=== PATIENT | male | born 1965 | race Hispanic/Latino ===

== ENCOUNTER 2016-07-07 11:05 | Emergency (ER) | payer MEDICARE ==
[2016-07-07 11:05] VITALS: BMI 45.0
[2016-07-07 11:19] VITALS: RESP 16; TEMP 98.5
--- NOTE | 2016-07-07 11:25 | ED PDOC ---
Arrival/HPI - General Chief Complaint: Upper Extremity Problem/Injury Time Seen by Provider: 07/07/16 11:21 Historian: Patient - History of Present Illness Narrative History of Present Illness (Text): 07/07/16 11:23 51 y/o male, pmh including htn/gout, nkda, c/o lt. shoulder pain on and off x 2 weeks with no fall or trauma. Aching pain, aggravated by movement, non- radiating, no chest pain or shortness of breath, no numbness or tingling, no palpitation, no dizziness, no pain medication taken at home, didn't have the chance to see his own pmd and here at the ER for evaluation. Past Medical History - Provider Review Nursing Documentation Reviewed: Yes - Past History Past History: Non-Contributing - Infectious Disease Hx of Infectious Diseases: None - Tetanus Immunization Tetanus Immunization: Unknown - Past Medical History Past Medical History: Non-Contributing - Cardiac Hx Cardiac Disorders: Yes Hx Hypertension: Yes - Neurological Hx Paralysis: No - HEENT Hx HEENT Disorder: Yes (L LAZY EYE) - Renal Hx Renal Disorder: Yes (NEPHROLITHIASIS-1.4 CM L POLE OF KIDNEY) Hx Kidney Stones: Yes Other/Comment: corbin kid stents presently as per pt - Endocrine/Metabolic Hx Diabetes Mellitus Type 2: Yes - Hematological/Oncological Hx Blood Transfusion Reaction: No - Integumentary Hx Dermatological Disorder: Yes - Musculoskeletal/Rheumatological Hx Musculoskeletal Disorders: Yes (RIGHT KNEE ARTHROCENTESIS) Hx Falls: Yes Hx Unsteady Gait: Yes (CANE) - Gastrointestinal Hx Gall Bladder Disease: Yes (gb removal) - Psychiatric Hx Emotional Abuse: No Hx Physical Abuse: No Hx Substance Use: No - Past Surgical History Past Surgical History: Non-Contributing - Surgical History Hx Cholecystectomy: Yes Other/Comment: kidney stone - Anesthesia Hx Anesthesia Reactions: No Hx Malignant Hyperthermia: No - Suicidal Assessment Feels Threatened In Home Enviroment: No Family/Social History - Physician Review Nursing Documentation Reviewed: Yes Family/Social History: Unknown Family HX Smoking Status: Never Smoked Hx Alcohol Use: No Hx Substance Use: No Hx Substance Use Treatment: No Allergies/Home Meds Allergies/Adverse Reactions: Allergies No Known Allergies Allergy (Verified 07/07/16 11:19) Home Medications: Home Meds Medication Instructions Recorded Confirmed Nebivolol [Bystolic] 10 mg PO QAM 08/20/15 07/07/16 amLODIPine [Norvasc] 10 mg PO QPM 08/20/15 07/07/16 Review of Systems - Review of Systems Constitutional: absent: Fatigue, Fevers Eyes: absent: Vision Changes ENT: absent: Hearing Changes Respiratory: absent: Cough, Sputum Cardiovascular: absent: Chest Pain, Palpitations Gastrointestinal: absent: Abdominal Pain Musculoskeletal: Arthralgias. absent: Back Pain, Neck Pain, Joint Swelling, Myalgias Skin: absent: Rash, Pruritis, Skin Lesions, Laceration, Abscess, Ulcer Neurological: absent: Headache, Dizziness, Focal Weakness, Gait Changes, Speech Changes, Facial Droop, Disequilibrium Physical Exam Vital Signs Reviewed: Yes Vital Signs Temp Pulse Resp BP Pulse Ox 07/07/16 12:01 63 16 137/85 99 07/07/16 11:16 98.5 F 68 16 138/87 96 Temperature: Afebrile Blood Pressure: Normal Pulse: Regular Respiratory Rate: Normal Appearance: Positive for: Well-Appearing, Non-Toxic, Comfortable Pain Distress: Mild Mental Status: Positive for: Alert and Oriented X 3 - Systems Exam Head: Present: Atraumatic, Normocephalic Pupils: Present: PERRL Extroacular Muscles: Present: EOMI Conjunctiva: Present: Normal Mouth: Present: Moist Mucous Membranes Neck: Present: Normal Range of Motion Respiratory/Chest: Present: Clear to Auscultation, Good Air Exchange. No: Respiratory Distress, Accessory Muscle Use Cardiovascular: Present: Regular Rate and Rhythm, Normal S1, S2. No: Murmurs Abdomen: Present: Normal Bowel Sounds. No: Tenderness, Distention, Peritoneal Signs Back: Present: Normal Inspection Upper Extremity: Present: Normal Inspection, Normal ROM, NORMAL PULSES, Neurovascularly Intact, Capillary Refill < 2s, Other (Lt. shoulder: +ttp on the anterior shoulder joint line with pain 100% reproducible, FROM without limitation, sensation intact, motor 5/5, +radial pulse, capillary refill< 2 seconds, neurovascular intact. ). No: Cyanosis, Edema, Deformity Lower Extremity: Present: Normal Inspection. No: Edema Neurological: Present: GCS=15, CN II-XII Intact, Speech Normal Skin: Present: Warm, Dry, Normal Color. No: Rashes Psychiatric: Present: Alert, Oriented x 3, Normal Insight, Normal Concentration Medical Decision Making ED Course and Treatment: 07/07/16 11:25 -lt. shoulder xray -indomethacin -observe and reassess 07/07/16 11:52 -Pt. stated that he feels better, discussed about the xray show no fracture or dislocation but there is mild degenerative changes, sling given, advised outpatient orthopedic follow up. -Discharge home with sling, indomethacin, avoid strenuous exercise or activity, follow up with your own pmd and orthopedic within 2 days, return to the ER for any new or worsening signs or symptoms. - RAD Interpretation Radiology Orders: 07/07/16 11:21 SHOULDER LEFT [RAD] Stat HISTORY: lt. shoulder pain x 2 weeks, non-radiating COMPARISON: No prior. FINDINGS: BONES: Normal. No fracture. JOINTS: Degenerative changes are seen in the acromioclavicular joint. SOFT TISSUES: Normal. OTHER FINDINGS: None. IMPRESSION: No acute findings Employee Benefits Manager: Radiologist - Medication Orders Current Medication Orders: Discontinued Medications Indomethacin (Indocin) 50 mg PO STAT STA Stop: 07/07/16 11:22 Last Admin: 07/07/16 11:35 Dose: 50 mg - PA / FARM EQUIPMENT MECHANIC APPRENTICE / Resident Statement / has reviewed & agrees with the documentation as recorded. Disposition/Present on Arrival - Present on Arrival Any Indicators Present on Arrival: No History of DVT/PE: No History of Uncontrolled Diabetes: No Urinary Catheter: No History of Decub. Ulcer: No History Surgical Site Infection Following: None - Disposition Have Diagnosis and Disposition been Completed?: Yes Diagnosis: Tendinitis, Degenerative joint disease Disposition: HOME/ ROUTINE Disposition Time: 11:54 Patient Plan: Discharge Patient Problems: Current Active Problems Problem Status Onset Tendinitis Acute Degenerative joint disease Acute Condition: IMPROVED Additional Instructions: Discharge home with sling, indomethacin, avoid strenuous exercise or activity, follow up with your own pmd and orthopedic within 2 days, return to the ER for any new or worsening signs or symptoms. Prescriptions: Indomethacin [Indocin] 50 mg PO TID PRN #21 cap PRN Reason: Other Referrals: Christine Busby MD [Primary Care Provider] - Follow up with primary Ismael Rebolledo DO [Staff Provider] - Follow up with primary Forms: WORK NOTE
[2016-07-07 12:02] VITALS: BP 137/85; PULSE 63; O2SAT 99
--- NOTE | 2016-07-07 12:03 | RAD ---
PROCEDURE: Radiographs of the Left Shoulder HISTORY: lt. shoulder pain x 2 weeks, non-radiating COMPARISON: No prior. FINDINGS: BONES: Normal. No fracture. JOINTS: Degenerative changes are seen in the acromioclavicular joint. SOFT TISSUES: Normal. OTHER FINDINGS: None. IMPRESSION: No acute findings
== END 2016-07-07 12:03 | disposition home or self-care (01) ==
LOC: ED 11:05
DX: M19.012 Primary osteoarthritis, left shoulder (principal); M77.8 Other enthesopathies, not elsewhere classified

== ENCOUNTER 2016-11-20 01:39 | Emergency (ER) | payer MEDICARE ==
[2016-11-20 01:39] VITALS: BMI 45.0
[2016-11-20 01:59] VITALS: BP 160/99; PULSE 82; RESP 18; TEMP 97.8; O2SAT 97
--- NOTE | 2016-11-20 02:22 | ED PDOC ---
Arrival/HPI - History of Present Illness Time/Duration: 4-6 hours Symptom Onset: Gradual Symptom Course: Intermittent Quality: Pressure Severity Level: 5 - General Chief Complaint: Back Pain Time Seen by Provider: 11/20/16 01:41 - History of Present Illness Narrative History of Present Illness (Text): 11/20/16 02:20 This is a 51 year old male with PMHx HTN, CKD, nephrolithiasis s/p stent placement who presents for back pain. Patient states it started earlier this evening around 10 PM and has been intermittent. Patient took a shower and after the shower, he experienced worsening pain, prompting him to come to the ER. Patient denies trauma but states that he was doing housework earlier. Patient states that the pain is described as a 5/10 pressure sensation without radiation. Patient states that he has not taken anything for pain. Patient has a history of nephrolithiasis but states that this episode of pain does not feel the same as previous episodes of kidney stones. Patient denies hematuria, dysuria, urinary frequency. PMHx: HTN, CKD, Nephrolithiasis PSHx: Cholecystectomy, cyst removal from the neck in his childhood Allergies: NKDA Social: Denies tobacco, alcohol, drugs. PMD: Dr. Dunne ([facility]) Past Medical History - Provider Review Nursing Documentation Reviewed: Yes - Past History Past History: Non-Contributing - Infectious Disease Hx of Infectious Diseases: None - Tetanus Immunization Tetanus Immunization: Unknown - Past Medical History Past Medical History: Non-Contributing - Cardiac Hx Cardiac Disorders: Yes Hx Hypertension: Yes - Neurological Hx Paralysis: No - HEENT Hx HEENT Disorder: Yes (L LAZY EYE) - Renal Hx Renal Disorder: Yes (NEPHROLITHIASIS-1.4 CM L POLE OF KIDNEY) Hx Kidney Stones: Yes Other/Comment: corbin kid stents presently as per pt - Endocrine/Metabolic Hx Diabetes Mellitus Type 2: Yes - Hematological/Oncological Hx Blood Transfusion Reaction: No - Integumentary Hx Dermatological Disorder: Yes - Musculoskeletal/Rheumatological Hx Musculoskeletal Disorders: Yes (RIGHT KNEE ARTHROCENTESIS) Hx Falls: Yes Hx Unsteady Gait: Yes (CANE) - Gastrointestinal Hx Gall Bladder Disease: Yes (gb removal) - Psychiatric Hx Emotional Abuse: No Hx Physical Abuse: No Hx Substance Use: No - Past Surgical History Past Surgical History: Non-Contributing - Surgical History Hx Cholecystectomy: Yes Other/Comment: kidney stone - Anesthesia Hx Anesthesia Reactions: No Hx Malignant Hyperthermia: No - Suicidal Assessment Feels Threatened In Home Enviroment: No Family/Social History - Physician Review Nursing Documentation Reviewed: Yes Family/Social History: No Known Family HX Smoking Status: Never Smoked Hx Alcohol Use: No Hx Substance Use: No Hx Substance Use Treatment: No Allergies/Home Meds Allergies/Adverse Reactions: Allergies No Known Allergies Allergy (Verified 07/07/16 11:19) Home Medications: Home Meds Medication Instructions Recorded Confirmed Nebivolol [Bystolic] 10 mg PO QAM 08/20/15 11/20/16 amLODIPine [Norvasc] 10 mg PO QPM 08/20/15 11/20/16 Review of Systems - Review of Systems Constitutional: Normal Eyes: Normal ENT: Normal Respiratory: Normal Cardiovascular: Normal Gastrointestinal: Normal Genitourinary Male: Normal. absent: Dysuria, Frequency, Hematuria Musculoskeletal: Back Pain (right sided low back pain without radiation) Skin: Normal Neurological: Normal Endocrine: Normal Hemo/Lymphatic: Normal Psychiatric: Normal Physical Exam Vital Signs Reviewed: Yes Temperature: Afebrile Blood Pressure: Hypertensive Pulse: Regular Respiratory Rate: Normal Appearance: Positive for: Well-Appearing Pain Distress: None Mental Status: Positive for: Alert and Oriented X 3 - Systems Exam Head: Present: Atraumatic, Normocephalic Pupils: Present: PERRL Extroacular Muscles: Present: Other (lazy left eye) Conjunctiva: Present: Normal Mouth: Present: Moist Mucous Membranes Neck: Present: Normal Range of Motion Respiratory/Chest: Present: Clear to Auscultation, Good Air Exchange. No: Accessory Muscle Use Cardiovascular: Present: Regular Rate and Rhythm, Normal S1, S2 Abdomen: Present: Normal Bowel Sounds. No: Tenderness, Distention Back: Present: Normal Inspection, Paraspinal Tenderness (right sided paraspinal tenderness but no increase in muscle tone. no muscle spasm in the area.) Upper Extremity: Present: Normal Inspection, NORMAL PULSES. No: Edema Lower Extremity: Present: Normal Inspection, NORMAL PULSES. No: Edema, CALF TENDERNESS Neurological: Present: GCS=15, CN II-XII Intact Skin: Present: Warm, Dry, Normal Color Psychiatric: Present: Alert, Oriented x 3 Medical Decision Making ED Course and Treatment: 11/20/16 02:38 Patient discharged home with instructions to purchase Tylenol and use as needed. Patient also told to follow up with his PMD and to return if any new or worsening symptoms. (Lui Bustillos) Seen and examined with resident. 51 y/o M p/w R sided lower back pain. Denies urinary or bowel symptoms, states feels nothing like his previous kidney stone, which was much worse, denies numbness or weakness. On exam, no midline tenderness, no rash. (Salvatore Mi) - Medication Orders Current Medication Orders: Discontinued Medications Acetaminophen (Tylenol 325mg Tab) 650 mg PO STAT STA Stop: 11/20/16 02:14 Last Admin: 11/20/16 02:29 Dose: 650 mg Disposition/Present on Arrival - Present on Arrival Any Indicators Present on Arrival: No History of DVT/PE: No History of Uncontrolled Diabetes: No Urinary Catheter: No History of Decub. Ulcer: No History Surgical Site Infection Following: None - Disposition Have Diagnosis and Disposition been Completed?: Yes Disposition Time: 02:30 - Disposition Diagnosis: Back pain Disposition: HOME/ ROUTINE Condition: STABLE Additional Instructions: Please follow up with your primary care doctor within 1 week. Please discuss options for treatment of back pain. Please purchase [id number] Tylenol and use only as needed for the pain. Return to the emergency room if any new or worsening symptoms. Referrals: Christine Busby MD [Staff Provider] - Follow up with primary Forms: [employer] (Urdu)
== END 2016-11-20 02:31 | disposition home or self-care (01) ==
LOC: ED 01:39
DX: M54.9 Dorsalgia, unspecified (principal)

== ENCOUNTER 2017-04-04 09:50 | Emergency (ER) | payer MEDICARE ==
[2017-04-04 09:51] VITALS: BMI 45.0
[2017-04-04 10:11] VITALS: BP 132/89; PULSE 70; RESP 18; TEMP 98; O2SAT 98
--- NOTE | 2017-04-04 11:00 | ED PDOC ---
Arrival/HPI - General Chief Complaint: Upper Extremity Problem/Injury Time Seen by Provider: 04/04/17 10:39 - History of Present Illness Narrative History of Present Illness (Text): CC: 52M presents with left shoulder pain 04/04/17 10:57 HPI: 52M presents with left shoulder pain for one week. Pain is sharp. Patient states pain started 1 week ago after moving a dresser with a friend. Patient states he does not have numbness, tingling, weakness of left upper extremity. 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) Hx Kidney Stones: Yes Other/Comment: kidney stents removed - Endocrine/Metabolic Hx Diabetes Mellitus Type 2: Yes - Hematological/Oncological Hx Blood Transfusion Reaction: No - Integumentary Hx Dermatological Disorder: Yes - Musculoskeletal/Rheumatological Hx Musculoskeletal Disorders: Yes (RIGHT KNEE ARTHROCENTESIS) Hx Falls: Yes Hx Unsteady Gait: Yes (CANE) - Gastrointestinal Hx Gall Bladder Disease: Yes (gb removal) - Psychiatric Hx Emotional Abuse: No Hx Physical Abuse: No Hx Substance Use: No - Past Surgical History Past Surgical History: Non-Contributing - Surgical History Hx Cholecystectomy: Yes Other/Comment: kidney stone - Anesthesia Hx Anesthesia Reactions: No Hx Malignant Hyperthermia: No - Suicidal Assessment Feels Threatened In Home Enviroment: No Family/Social History - Physician Review Nursing Documentation Reviewed: Yes Family/Social History: Unknown Family HX Smoking Status: Never Smoked Hx Alcohol Use: No Hx Substance Use: No Hx Substance Use Treatment: No Allergies/Home Meds Allergies/Adverse Reactions: Allergies No Known Allergies Allergy (Verified 04/04/17 10:11) Home Medications: Home Meds Medication Instructions Recorded Confirmed Nebivolol [Bystolic] 10 mg PO QAM 08/20/15 04/04/17 amLODIPine [Norvasc] 10 mg PO QPM 08/20/15 04/04/17 Review of Systems - Physician Review All systems were reviewed & negative as marked: Yes - Review of Systems Constitutional: absent: Fatigue, Weight Change, Fevers Eyes: absent: Vision Changes, Photophobia, Eye Pain ENT: absent: Hearing Changes, Tinnitus, TMJ Pain, Rhinorrhea, Epistaxis, Sinus Congestion Respiratory: absent: SOB, Cough, Sputum, Wheezing Cardiovascular: absent: Chest Pain, Palpitations, Edema, Calf Pain, Orthopnea, Syncope Gastrointestinal: absent: Abdominal Pain, Stool Changes, Constipation, Vomiting , Appetite Changes, Hematochezia, Food Intolerance Genitourinary Male: absent: Dysuria, Frequency, Hematuria Musculoskeletal: Other (left upper extremity pain in deltoid region). absent: Arthralgias, Back Pain, Neck Pain Skin: absent: Rash, Pruritis, Skin Lesions, Laceration Neurological: absent: Headache, Dizziness, Focal Weakness, Gait Changes, Speech Changes, Facial Droop, Disequilibrium, Seizure Endocrine: absent: Diaphoresis, Polyuria, Polydipsia Hemo/Lymphatic: absent: Adenopathy, Easy Bleeding, Easy Bruising Psychiatric: absent: Anxiety, Depression, Suicidal Ideation Physical Exam Vital Signs Temp Pulse Resp BP Pulse Ox 04/04/17 10:06 98 F 70 18 132/89 98 - Systems Exam Head: Present: Atraumatic, Normocephalic Pupils: Present: PERRL Extroacular Muscles: Present: Other (strabismus) Conjunctiva: Present: Normal. No: Injected, Icteric Mouth: Present: Moist Mucous Membranes. No: Dry, Drooling Nose (External): Present: Atraumatic. No: Abrasion, Contusion, Laceration Nose (Internal): Present: Normal Inspection. No: No Active Bleeding, Moist, Engorged, Edematous Neck: Present: Normal Range of Motion, Trachea Midline. No: JVD, Lymphadenopathy, Bruit Cardiovascular: Present: Regular Rate and Rhythm, Normal S1, S2. No: Murmurs, Irregular Rhythm Abdomen: Present: Distention, Normal Bowel Sounds. No: Tenderness, Peritoneal Signs, Rebound, Guarding Back: Present: Normal Inspection. No: CVA Tenderness, Midline Tenderness, Paraspinal Tenderness Upper Extremity: Present: Normal Inspection, NORMAL PULSES, Tenderness ( negative yergason's test, no tenderness along rotator cuff. tenderness at anterior deltoid head), Capillary Refill < 2s, Other (Equal range of motion on bilateral upper extremities. Some apprehension due to pain on left shoulder. Patient states he does not have numbness, tingling, weakness of left upper extremity.). No: Cyanosis, Edema, Swelling Lower Extremity: Present: Normal Inspection, Normal ROM, Capillary Refill < 2 s. No: Edema, CALF TENDERNESS, Maria Teresa's Sign, Tenderness Neurological: Present: GCS=15, CN II-XII Intact, Speech Normal, Motor Func Grossly Intact, Normal Sensory Function, Norm Deep Tendon Reflexes Skin: Present: Warm, Dry, Normal Color. No: Rashes Psychiatric: Present: Normal Affect, Normal Mood. No: Normal Insight Medical Decision Making ED Course and Treatment: 04/04/17 11:05 tylenol Re-evaluation Time: 11:05 Disposition/Present on Arrival - Present on Arrival Any Indicators Present on Arrival: No History of DVT/PE: No History of Uncontrolled Diabetes: No Urinary Catheter: No History of Decub. Ulcer: No History Surgical Site Infection Following: None - Disposition Have Diagnosis and Disposition been Completed?: Yes Diagnosis: Tendonitis, Muscle strain Disposition: HOME/ ROUTINE Disposition Time: 11:10 Patient Plan: Discharge Patient Problems: Current Active Problems Problem Status Onset Muscle strain Acute Tendonitis Acute Condition: FAIR Additional Instructions: follow up with primary care doctor in one week if symptoms worsen, consider referral to orthopedic surgeon take tylenol or ibuprofen as needed for pain Referrals: [facility], [Non-Staff] - Follow up with primary
== END 2017-04-04 11:45 | disposition home or self-care (01) ==
LOC: ED 09:50
DX: M77.9 Enthesopathy, unspecified (principal); S46.912A Strain of unspecified muscle, fascia and tendon at shoulder and upper arm level, left arm, initial encounter; X50.9XXA Other and unspecified overexertion or strenuous movements or postures, initial encounter; E11.9 Type 2 diabetes mellitus without complications; I10 Essential (primary) hypertension

== ENCOUNTER 2017-12-24 18:31 | Emergency (ER) | payer MEDICARE ==
[2017-12-24 19:29] VITALS: RESP 18; TEMP 98.8
[2017-12-24 19:33] VITALS: BMI 39.1
[2017-12-24] MEDS ORDERED: guaiFENesin 200 mg/10 ml Syrup UD PO ONE (19:37)
--- NOTE | 2017-12-24 19:41 | ED PDOC ---
Arrival/HPI - General Chief Complaint: Cough, Cold, Congestion Time Seen by Provider: 12/24/17 19:20 Historian: Patient - History of Present Illness Narrative History of Present Illness (Text): 12/24/17 19:38 52 yo M w/ PMH of hypertension, presents with 2 day h/o dry cough. Denies any fevers, chills, shortness of breath, chest pain, recent travel, sick contacts, N/V, rash. Has no other complaints. 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) Hx Kidney Stones: Yes Other/Comment: kidney stents removed - Endocrine/Metabolic Hx Diabetes Mellitus Type 2: Yes - Hematological/Oncological Hx Blood Transfusion Reaction: No - Integumentary Hx Dermatological Disorder: Yes - Musculoskeletal/Rheumatological Hx Musculoskeletal Disorders: Yes (RIGHT KNEE ARTHROCENTESIS) Hx Falls: Yes Hx Unsteady Gait: Yes (CANE) - Gastrointestinal Hx Gall Bladder Disease: Yes (gb removal) - Psychiatric Hx Emotional Abuse: No Hx Physical Abuse: No Hx Substance Use: No - Past Surgical History Past Surgical History: Non-Contributing - Surgical History Hx Cholecystectomy: Yes Other/Comment: kidney stone - Anesthesia Hx Anesthesia: Yes Hx Anesthesia Reactions: No Hx Malignant Hyperthermia: No - Suicidal Assessment Feels Threatened In Home Enviroment: No Family/Social History Family/Social History: Unknown Family HX Smoking Status: Never Smoked Hx Alcohol Use: No Hx Substance Use: No Hx Substance Use Treatment: No Allergies/Home Meds Allergies/Adverse Reactions: Allergies No Known Allergies Allergy (Verified 12/24/17 19:35) Home Medications: Home Meds Medication Instructions Recorded Confirmed Nebivolol [Bystolic] 10 mg PO QAM 08/20/15 04/04/17 amLODIPine [Norvasc] 10 mg PO QPM 08/20/15 04/04/17 Review of Systems - Review of Systems Constitutional: absent: Fatigue, Fevers ENT: absent: Sore Throat, Rhinorrhea Respiratory: Cough. absent: SOB, Sputum Cardiovascular: absent: Chest Pain, Palpitations Gastrointestinal: absent: Abdominal Pain, Diarrhea, Vomiting Genitourinary Male: absent: Dysuria, Frequency Musculoskeletal: absent: Arthralgias, Back Pain, Neck Pain Skin: absent: Rash, Pruritis, Skin Lesions Physical Exam Vital Signs Temp Pulse Resp BP Pulse Ox 12/24/17 19:27 98.8 F 98 H 18 136/84 97 Temperature: Afebrile Blood Pressure: Normal Pulse: Regular Respiratory Rate: Normal Appearance: Positive for: Well-Appearing, Non-Toxic, Comfortable Pain Distress: None Mental Status: Positive for: Alert and Oriented X 3 - Systems Exam Head: Present: Atraumatic, Normocephalic Pupils: Present: PERRL Extroacular Muscles: Present: EOMI Conjunctiva: Present: Normal Ears: Present: Normal, NORMAL TM, Normal Canal Mouth: Present: Moist Mucous Membranes Pharnyx: Present: Normal. No: ERYTHEMA, EXUDATE Neck: Present: Normal Range of Motion. No: Meningeal Signs, Lymphadenopathy Respiratory/Chest: Present: Clear to Auscultation, Good Air Exchange. No: Respiratory Distress, Accessory Muscle Use, Wheezes, Rales, Rhonchi Cardiovascular: Present: Regular Rate and Rhythm, Normal S1, S2. No: Murmurs Abdomen: No: Tenderness, Distention, Peritoneal Signs Back: Present: Normal Inspection Upper Extremity: Present: Normal Inspection. No: Cyanosis, Edema Lower Extremity: Present: Normal Inspection. No: Edema Neurological: Present: GCS=15, CN II-XII Intact, Speech Normal, Motor Func Grossly Intact, Normal Sensory Function Skin: Present: Warm, Dry, Normal Color. No: Rashes Psychiatric: Present: Alert, Oriented x 3, Normal Insight, Normal Concentration Medical Decision Making ED Course and Treatment: 12/24/17 19:39 Plan : - guaifenesin PO Advised to follow up with primary care physician in 1-2 days without fail. Advised to take medication as prescribed. Return to the emergency room at any time for any new or worsening symptoms. Patient states he fully agrees with and understands discharge instructions. States that he agrees with the plan and disposition. Verbalized and repeated discharge instructions and plan. I have given the patient opportunity to ask any additional questions. - PA / KENO WRITER / RUNNER / Resident Statement MD/DO has reviewed & agrees with the documentation as recorded. Disposition/Present on Arrival - Present on Arrival Any Indicators Present on Arrival: No History of DVT/PE: No History of Uncontrolled Diabetes: No Urinary Catheter: No History of Decub. Ulcer: No History Surgical Site Infection Following: None - Disposition Have Diagnosis and Disposition been Completed?: Yes Diagnosis: Cough Disposition: HOME/ ROUTINE Disposition Time: 19:45 Patient Plan: Discharge Condition: STABLE Discharge Instructions (ExitCare): Cough in Adults, Viral Upper Respiratory Infection, Adult (DC) Additional Instructions: Thank you for letting us take care of you today. You were treated for cough. The emergency medical care you received today was directed at your acute symptoms. If you were prescribed any medication, please fill it and take as directed. It may take several days for your symptoms to resolve. Return to the Emergency Department if your symptoms worsen, do not improve, or if you have any other problems. Please contact your doctor in 2 days for re-evaluation and follow up. Bring any paperwork you were given at discharge with you along with any medications you are taking to your follow up visit. Our treatment cannot replace ongoing medical care by a primary care provider (PCP) outside of the emergency department. Thank you for allowing the [facility] [employer] team to be part of your care today. Prescriptions: Guaifenesin [Adult Tussin Chest Congestion] 200 mg PO Q6H PRN #200 ml PRN Reason: Cough
[2017-12-24 20:09] VITALS: BP 131/85; PULSE 95; O2SAT 100
== END 2017-12-24 20:08 | disposition home or self-care (01) ==
LOC: ED 18:31
DX: R05 Cough (principal)

== ENCOUNTER 2017-12-27 12:34 | Emergency (ER) | payer MEDICARE ==
[2017-12-27 12:46] VITALS: BMI 46.2
[2017-12-27 12:47] VITALS: PULSE 88; RESP 18; TEMP 98.3; O2SAT 97
[2017-12-27 12:51] VITALS: BP 123/53
--- NOTE | 2017-12-27 13:10 | ED PDOC ---
Arrival/HPI - General Time Seen by Provider: 12/27/17 12:35 Historian: Patient - History of Present Illness Narrative History of Present Illness (Text): 12/27/17 12:40 52 year old male, whose past medical history includes hypertension, who presents to the emergency department complaining of worsening dry cough for past 6 days. Patient was in Emergency department three days ago on 12/24/17 for same symptoms. Patient denies any fevers, chills, shortness of breath, chest pain, nausea, vomiting, rash, or any other complaints. 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) Hx Kidney Stones: Yes Other/Comment: kidney stents removed - Endocrine/Metabolic Hx Diabetes Mellitus Type 2: Yes - Hematological/Oncological Hx Blood Transfusion Reaction: No - Integumentary Hx Dermatological Disorder: Yes - Musculoskeletal/Rheumatological Hx Musculoskeletal Disorders: Yes (RIGHT KNEE ARTHROCENTESIS) Hx Falls: Yes Hx Unsteady Gait: Yes (CANE) - Gastrointestinal Hx Gall Bladder Disease: Yes (gb removal) - Psychiatric Hx Emotional Abuse: No Hx Physical Abuse: No Hx Substance Use: No - Past Surgical History Past Surgical History: Non-Contributing - Surgical History Hx Cholecystectomy: Yes Other/Comment: kidney stone - Anesthesia Hx Anesthesia: Yes Hx Anesthesia Reactions: No Hx Malignant Hyperthermia: No - Suicidal Assessment Feels Threatened In Home Enviroment: No Family/Social History - Physician Review Nursing Documentation Reviewed: Yes Family/Social History: No Known Family HX Smoking Status: Never Smoked Hx Alcohol Use: No Hx Substance Use: No Hx Substance Use Treatment: No Allergies/Home Meds Allergies/Adverse Reactions: Allergies No Known Allergies Allergy (Verified 12/24/17 19:35) Home Medications: Home Meds Medication Instructions Recorded Confirmed RX: Nebivolol [Bystolic] 10 mg PO QAM 08/20/15 12/24/17 RX: amLODIPine [Norvasc] 10 mg PO QPM 08/20/15 12/24/17 Review of Systems - Physician Review All systems were reviewed & negative as marked: Yes - Review of Systems Constitutional: absent: Fevers, Night Sweats Respiratory: Cough (patient notes worsening dry cough for past 6 days). absent: Normal, SOB Cardiovascular: Normal. absent: Chest Pain Gastrointestinal: Normal. absent: Nausea, Vomiting Skin: Normal. absent: Rash Physical Exam Vital Signs Reviewed: Yes Vital Signs Temp Pulse Resp BP Pulse Ox 12/27/17 12:46 98.3 F 88 18 123/53 L 97 Temperature: Afebrile Blood Pressure: Normal Pulse: Regular Respiratory Rate: Normal Appearance: Positive for: Well-Appearing, Non-Toxic Pain Distress: None Mental Status: Positive for: Alert and Oriented X 3 - Systems Exam Head: Present: Atraumatic, Normocephalic Pupils: Present: PERRL Extroacular Muscles: Present: EOMI Conjunctiva: Present: Normal Mouth: Present: Moist Mucous Membranes Pharnyx: Present: ERYTHEMA. No: Normal Neck: Present: Normal Range of Motion Respiratory/Chest: Present: Clear to Auscultation, Good Air Exchange. No: Respiratory Distress, Accessory Muscle Use Cardiovascular: Present: Regular Rate and Rhythm, Normal S1, S2. No: Murmurs Abdomen: No: Tenderness, Distention, Peritoneal Signs Back: Present: Normal Inspection Upper Extremity: Present: Normal Inspection. No: Cyanosis, Edema Lower Extremity: Present: Normal Inspection. No: Edema Neurological: Present: GCS=15, CN II-XII Intact, Speech Normal Skin: Present: Warm, Dry, Normal Color. No: Rashes Psychiatric: Present: Alert, Oriented x 3, Normal Insight, Normal Concentration Medical Decision Making ED Course and Treatment: 12/27/17 13:08 Impression: 52 year old male presents to the Emergency department with worsening dry cough for past 6 days. Differential Diagnosis included but are not limited to: Plan: -- X-ray of chest, 2 views (PA/LAT) -- Influenza A B -- Rapid Strep Group A Antigen -- Reassess and disposition Prior Visits: Notes and results from previous visits were reviewed. Patient was last seen in [facility] emergency department three days ago on 12/24/17 for 2 day h/o dry cough. Patient was discharged home in stable condition. Progress Notes: 12/27/17 17:35 xr neg lungs clear speaking full sentecnes in nad. advise outpt fu - RAD Interpretation Narrative RAD Interpretations (Text): X-ray of chest reviewed by radiologist, shows: Dictator : Didi Sutton MD Report Date : 12/27/2017 14:01:51 FINDINGS: LINES AND TUBES: None. LUNG AND PLEURA: The lungs are well inflated and clear. No pleural effusion or pneumothorax. HEART AND MEDIASTINUM: The heart is not enlarged. No aortic atherosclerotic calcification present. The hilar and mediastinal contours are within normal limits. SKELETAL STRUCTURES: The bony structures are within normal limits for the patient's age. VISUALIZED UPPER ABDOMEN: Normal. OTHER FINDINGS: None. IMPRESSION: No active pulmonary disease. Radiology Orders: 12/27/17 12:54 CHEST TWO VIEWS (PA/LAT) [RAD] Stat Currency Machine Operator: Radiologist - Scribe Statement The provider has reviewed the documentation as recorded by the Scribe Maryanne Brown All medical record entries made by the Scribe were at my direction and personally dictated by me. I have reviewed the chart and agree that the record accurately reflects my personal performance of the history, physical exam, medical decision making, and the department course for this patient. I have also personally directed, reviewed, and agree with the discharge instructions and disposition. Disposition/Present on Arrival - Present on Arrival Any Indicators Present on Arrival: No History of DVT/PE: No History of Uncontrolled Diabetes: No Urinary Catheter: No History Surgical Site Infection Following: None - Disposition Have Diagnosis and Disposition been Completed?: Yes Diagnosis: Cough, Viral syndrome Disposition: HOME/ ROUTINE Disposition Time: 12:00 Condition: STABLE Discharge Instructions (ExitCare): Cough in Adults, Viral Syndrome (DC) Additional Instructions: please followup with your doctor/return to er with worsening symptoms or concerns. Referrals: [facility] [Outside] - Follow up with primary [facility]Outside] - Follow up with primary Forms: [employer] (Montenegrin)
--- NOTE | 2017-12-27 14:05 | RAD ---
HISTORY: Cough COMPARISON: 09/08/2013. TECHNIQUE: Chest PA and lateral FINDINGS: LINES AND TUBES: None. LUNG AND PLEURA: The lungs are well inflated and clear. No pleural effusion or pneumothorax. HEART AND MEDIASTINUM: The heart is not enlarged. No aortic atherosclerotic calcification present. The hilar and mediastinal contours are within normal limits. SKELETAL STRUCTURES: The bony structures are within normal limits for the patient's age. VISUALIZED UPPER ABDOMEN: Normal. OTHER FINDINGS: None. IMPRESSION: No active pulmonary disease.
== END 2017-12-27 14:32 | disposition home or self-care (01) ==
LOC: ED 12:34
DX: B34.9 Viral infection, unspecified (principal); R05 Cough

== ENCOUNTER 2018-04-11 07:33 | Outpatient (CLI) | payer MEDICARE | END 2018-04-11 07:34 | disposition home or self-care (01) | LOC: LAB 07:33 ==

== ENCOUNTER 2018-05-19 07:49 | Outpatient (CLI) | payer MEDICARE | END 2018-05-19 07:50 | disposition home or self-care (01) | LOC: RAD 07:49 | DX: N18.3 Chronic kidney disease, stage 3 (moderate) (principal); N20.0 Calculus of kidney ==

== ENCOUNTER → 2018-07-18 | Outpatient (CLI) | payer MEDICARE | LOC: LAB 08:17 ==